=== PATIENT | female | born 1960 | race Caucasian/White ===

== ENCOUNTER → 2020-08-11 15:39 | Outpatient (CLI) | payer BC, SELFPAY ==
--- NOTE | ~2020-08-11 | MR_ITS ---
EXAMINATION: MR ankle RT wo/w con DATE: 08/11/2020 17:40 INDICATION: Lateral right ankle tumor TECHNIQUE: Magnetic resonance imaging (MRI) of the right ankle was performed . without and with 17 mL Multihance intravenous contrast. Sequences included axial, sagittal and coronal T1-weighted FSE and T2-weighted FS FSE, axial T1-weighted FS FSE and postcontrast axial, sagittal and coronal T1-weighted FS FSE. COMPARISON: None. FINDINGS: Medial ankle ligaments: Deep and superficial deltoid ligaments as well as the spring ligament are normal. Lateral ankle ligaments: The anterior and posterior inferior tibiofibular ligaments are normal. The anterior talofibular, calc aneofibular and posterior talofibular ligaments are normal. Tendons: Small plantar calcaneal spur at the insertion of the Achilles tendon with additional small enthesopat hic ossicle at the distal aspect of the otherwise normal tendon consistent with chronic enthesopathy. . The peroneus longus and brevis tendons are normal. The tibialis anterior and extensor hallucis long us and extensor digitorum longus tendons are normal. The tibialis posterior, flexor digitorum longus and flexor hallucis longus tendons are normal. Plantar fascia: Small plantar calcaneal spur. There is mild thickening and increased signal of the central component of the plantar aponeurosis. Mild marrow edema with minimal enhancement at the calcaneal insertion of the plantar aponeurosis. Findings consistent with chronic enthesopathy with minimal ongoing plantar f asciitis. Bones/other: Bone alignment is normal. No fracture or pathologic marrow replacing process. Mild polyarticular oste oarthritis with small regions of high-grade chondral malacia with underlying subarticular edema at po rtions of the calcaneocuboid, navicular cuneiform and first-third tarsal metatarsal joints. At the ti biotalar joint there is degenerative subchondral cystic change versus osteochondral lesion along a 4 x 9 mm region of the posterior medial rim of the talar dome. There is a 1.7 x 0.7 x 1.7 cm peripherally enhancing lesion overlying the lateral malleolus within wh ich there is an additional approximately 4 x 3 mm central enhancing nodule. There is mild hyperemia a nd edema in the surrounding subcutaneous fat. There is a small region of increased fluid signal withi n the central nonenhancing portion of the lesion. IMPRESSION: 1. 1.7 x 0.7 x 1.7 cm complex cystic lesion overlying the lateral malleolus. Differential would inclu de abscess, hematoma/seroma, bursitis and could not exclude a cystic neoplasm although the surroundin g edema would favor an inflammatory etiology. Correlate with clinical history and if indicated could consider ultrasound-guided aspiration/biopsy. 2. Mild polyarticular osteoarthritis at the right foot and ankle with subarticular cystic change vers us osteochondral lesion along the posterior medial rim of the talar dome. Reviewed, dictated and finalized at location A. [facility] IMPRESSION: 1. 1.7 x 0.7 x 1.7 cm complex cystic lesion overlying the lateral malleolus. Di fferential would include abscess, hematoma/seroma, bursitis and could not exclu de a cystic neoplasm although the surrounding edema would favor an inflammatory etiology. Correlate with clinical history and if indicated could consider ultr asound-guided aspiration/biopsy. 2. Mild polyarticular osteoarthritis at the right foot and ankle with subarticu lar cystic change versus osteochondral lesion along the posterior medial rim of the talar dome.
[2020-08-11 16:18] LABS: Estimated Glomerular Filt Rate > 60
== END ==
PROVIDERS: Visit Provider Podiatrist Foot & Ankle Surgery
DX: R22.41 Localized swelling, mass and lump, right lower limb (principal); M19.071 Primary osteoarthritis, right ankle and foot
CPT/HCPCS: 73723; A9577

== ENCOUNTER 2020-09-06 01:38 | Outpatient (CLI) | payer BC, SELFPAY ==
[2020-09-06 18:52] LABS: SARS-CoV-2 RNA PCR Negative
== END 2020-09-06 01:39 | disposition home or self-care (01) ==
LOC: ANHCOVIDDT 01:38
PROVIDERS: PCP Physician Assistant; Visit Provider Internal Medicine Gastroenterology
DX: Z01.818 Encounter for other preprocedural examination (principal); Z20.828 Contact with and (suspected) exposure to other viral communicable diseases
CPT/HCPCS: 87635; C9803; U0003

== ENCOUNTER 2020-09-09 00:18 | Day surgery (SDC) | payer BC, SELFPAY ==
[2020-09-01 13:21] VITALS: BMI 35.4
--- NOTE | 2020-09-08 13:02 | WPDANESEPPF ---
Anes - Initial Pre Proc Eval Procedure: Operation Date: 09/09/20 08:30 Proposed Procedures p Screening Colonoscopy - Yobany Bunch DO Date/Time: 09/08/20 13:02 Surgeon: Yobany Bunch DO Pre Op Diagnosis: neoplasm screening Patient Data Age: 60 Gender: F Height: 1.57 m Weight: 88 kg Allergies Allergy/AdvReac Type Severity Reaction Status Date / Time Penicillins Allergy Unknown Unknown Verified 09/09/20 07:14 Home Medications Medication Instructions Recorded Confirmed Type atorvastatin 40 mg tablet 40 mg PO DAILY #90 tablet 11/03/19 09/09/20 Rx omeprazole 20 mg capsule,delayed 20 mg PO DAILY 07/19/20 09/09/20 History release lisinopril 20 mg PO DAILY 09/01/20 09/09/20 History metformin 2,000 mg BID 09/01/20 09/09/20 History Patient hx anesthesia problems: none Family hx anesthesia problems: none PMFSH Past Medical History Medical History (Updated 09/08/20 @ 13:02 by Ralph Alberto MD) BMI 35.0-35.9,adult Diabetes GERD (gastroesophageal reflux disease) Hypercholesterolemia Hypertension Ingrown toenail without infection (~06/2018) Primary hypertension Tobacco abuse Family History Family History Mother Family history of malignant neoplasm of ovary Diabetes mellitus Grandparent Diabetes mellitus Social History Social History Smoking packs per day: 0.5 Smoking cigarettes per day: 10.0 Years smoked: 44 Smoking pack-years: 22.00 Smoking status: Current every day smoker Tobacco type: cigarettes Second hand tobacco smoke exposure: No Alcohol intake: current Substance use: never Substance use type: does not use Gender identity (if verbalized by the patient): Female Spiritual care concerns: No Anes - Eval Final PreProcedure Day of Procedure 09/08/20 13:02 Patient weight: obese Heart: regular rate and rhythm Lungs: clear to auscultation and normal air movement Airway: Mallampati scale class II Neurological: alert and oriented Last oral intake: >/= 8 hours ASA classification: III Emergent: no Anesthetic plan: proceed Anesthesia type and monitoring: general GIVS Informed Consent: The patient's anesthetic plan and its attendant risks and benefits were discussed with the patient/family/POA. Questions were solicited and answers provided to the satisfaction of the patient/family/POA.
[2020-09-09 07:15] VITALS: BP 147/67; PULSE 81; RESP 18; TEMP 36.4; O2SAT 100; BMI 34.1
[2020-09-09] MEDS: LACTATED RINGERS 1,000 ML 150 ML IV CONT (07:23)
[2020-09-09 07:31] LABS: Glucose Point of Care 144 (65-105)
--- NOTE | 2020-09-09 08:29 | P.HP_ITS ---
H&P: [facility] History of Present Illness Date/Time: 09/09/20 08:29 Chief complaint: neoplasm screening Narrative: Reason for visit colonoscopy. This very pleasant lady's here at the request of the primary physician. The patient was examined. Impression: Screening and surveillance colonoscopy. Patient's history adenomatous colon polyps. GERD well controlled on medication. Diabetes mellitus. Hypertension. Hyperlipidemia. Recommendation: Colonoscopy. History: This very pleasant lady's here for screening and surveillance colonoscopy. She has history adenomatous colon polyps. She does have a history of GERD well controlled on medication. Physical examination: General: very pleasant patient in no acute distress. HEENT: Head was normocephalic sclerae is clear mouth without masses neck was supple. Heart: Rate rhythm regular without S3 or S4. Lungs: CTA. Abdomen: Soft with no guarding or rigidity. Bowel sounds were active. Neurologic: Cranial nerves 2 through 12 intact. No focal defects. No clonus. Musculoskeletal system: Revealed no joint tenderness or swelling no muscle atrophy. Extremities: Reveal no significant edema. Skin: Warm and dry with normal turgor. Mental status: intact. Patient is alert and oriented. Review of Systems Review of Systems: All systems reviewed & are unremarkable except as noted in HPI and below PMFSH Past Medical History Medical History (Updated 09/08/20 @ 13:02 by Ralph Alberto MD) BMI 35.0-35.9,adult Diabetes GERD (gastroesophageal reflux disease) Hypercholesterolemia Hypertension Ingrown toenail without infection (~06/2018) Primary hypertension Tobacco abuse Family History Family History Mother Family history of malignant neoplasm of ovary Diabetes mellitus Grandparent Diabetes mellitus Social History Social History Smoking packs per day: 0.5 Smoking cigarettes per day: 10.0 Years smoked: 44 Smoking pack-years: 22.00 Smoking status: Current every day smoker Tobacco type: cigarettes Second hand tobacco smoke exposure: No Alcohol intake: current Substance use: never Substance use type: does not use Gender identity (if verbalized by the patient): Female Spiritual care concerns: No Meds Home Medications and Allergies Home Medications Medication Instructions Recorded Confirmed Type atorvastatin 40 mg tablet 40 mg PO DAILY #90 tablet 11/03/19 09/09/20 Rx omeprazole 20 mg capsule,delayed 20 mg PO DAILY 07/19/20 09/09/20 History release lisinopril 20 mg PO DAILY 09/01/20 09/09/20 History metformin 2,000 mg BID 09/01/20 09/09/20 History Allergies Allergy/AdvReac Type Severity Reaction Status Date / Time Penicillins Allergy Unknown Unknown Verified 09/09/20 07:14 Vital Signs Vital Signs - 24 hr 09/09/20 07:15 Temperature 36.4 C L Pulse Rate 81 Respiratory Rate 18 Blood Pressure 147/67 H Pulse Oximetry 100
[2020-09-09 09:03] VITALS: BP 102/61; PULSE 65; RESP 20; O2SAT 94
[2020-09-09 09:13] VITALS: BP 98/62; PULSE 67; RESP 20; O2SAT 98
[2020-09-09 09:23] VITALS: BP 116/74; PULSE 55; RESP 15; O2SAT 100
== END 2020-09-09 09:10 | disposition home or self-care (01) ==
PROVIDERS: PCP Physician Assistant; Visit Provider Internal Medicine Gastroenterology
PROC: 0DJD8ZZ Inspection of Lower Intestinal Tract, Via Natural or Artificial Opening Endoscopic (ICD-10-PCS; CPT 45378; principal; 2020-09-09 08:30)
DX: Z12.11 Encounter for screening for malignant neoplasm of colon (principal); K52.9 Noninfective gastroenteritis and colitis, unspecified; D12.8 Benign neoplasm of rectum; D12.5 Benign neoplasm of sigmoid colon; K63.5 Polyp of colon; K57.30 Diverticulosis of large intestine without perforation or abscess without bleeding; K64.8 Other hemorrhoids; I10 Essential (primary) hypertension; E78.00 Pure hypercholesterolemia, unspecified; E11.9 Type 2 diabetes mellitus without complications; K21.9 Gastro-esophageal reflux disease without esophagitis; Z79.84 Long term (current) use of oral hypoglycemic drugs; F17.210 Nicotine dependence, cigarettes, uncomplicated; E66.9 Obesity, unspecified; Z68.34 Body mass index [BMI] 34.0-34.9, adult
CPT/HCPCS: 45385; 45380; 88305; J2704; J7120

== ENCOUNTER → 2020-10-06 10:12 | Outpatient (CLI) | payer BC, SELFPAY ==
--- NOTE | ~2020-10-06 | DEXA_ITS ---
Bone Density Report Name: Yuliya Lopez Age: 60 Sex: Female Ethnicity: White Date of : 1960 Indication: postmenopausal; screening for osteoporosis; hysterectomy; Referring Provider: Jamel Ag Study: Bone densitometry was performed. Exam Date: October 06, 2020 Accession number: [id number] Bone Density: Region BMD T-score Z-score Classification AP Spine (L1-L4) 1.116 0.6 2.0 Normal Femoral Neck (Left) 0.871 0.2 1.4 Normal Total Hip (Left) 1.039 0.8 1.7 Normal Femoral Neck (Right) 0.782 -0.6 0.6 Normal Total Hip (Right) 1.006 0.5 1.4 Normal Total Hip Mean 1.023 0.7 1.6 Normal World Health Organization criteria for BMD impression classify patients as: Normal (T-score at or above -1.0), Osteopenia (T-score between -1.0 and -2.5), or Osteoporosis (T-score at or below -2.5). 10-year Fracture Risk: FRAX not reported because: All T-scores for Spine Total, Hip Total, Femoral Neck at or above -1.0 Previous Exams: Region Exam Age BMD T-score BMD Change BMD Change Date g/cm2 vs Baseline vs Previous AP Spine(L1-L4) 10/06/2020 60 1.116 0.6 0.015 0.015 02/07/2016 55 1.100 0.5 Total Hip(Left) 10/06/2020 60 1.039 0.8 0.000 0.000 02/07/2016 55 1.039 0.8 Total Hip(Right) 10/06/2020 60 1.006 0.5 -0.044* -0.044* 02/07/2016 55 1.050 0.9 *Denotes significance at 95% confidence level, LSC for AP Spine = 0.022 g/cm2, LSC for Total Hip = 0.027 g/cm2 Clinical Information Provided by Patient: Smokes Has the following medical conditions: Hysterectomy Patient maximum height was 62.5 Menopause Age: 50 No regular weight bearing exercise Drinks caffeinated beverages Onset of menses at age 16 Number of children 2 Impression: The patient has normal bone mass. The patient has risk factors, including: smoking. The BMD for the Total Hip(Right) decreased, changing by -0.044 since the last DXA exam. Discussion: BONE DENSITY IS ABOVE THE MINIMUM DESIRABLE LEVEL AT ALL SKELETAL SITES TESTED. This patient?s bone mineral density is above the minimum desirable level (T-score -1.0 or better) at all sites measured. The patient should follow a healthful lifestyle (good nutrition with adequate calcium and vitamin D, and appropriate weight-bearing exercise). Follow-Up: Consider repeating this study in 3 to 4 years to reassess this patient's status, or sooner if there is some new
--- NOTE | ~2020-10-06 | MM_ITS ---
EXAMINATION: MM screening [facility] BI w julio HISTORY: Screening mammogram TECHNIQUE: Craniocaudal and mediolateral oblique 3-D tomosynthesis images were obtained and synthetic 2-D images were generated. CAD analysis was submitted and interpreted. COMPARISON: 02/07/2016, 02/03/2015, 12/03/2013 BREAST PARENCHYMAL COMPOSITION: There are scattered areas of fibroglandular density. FINDINGS: Intramammary lymph nodes are noted in the upper outer quadrant of the right breast. There i s no evidence of suspicious mass, calcification, or architectural distortion to suggest malignancy in either breast. There has been no suspicious interval change. IMPRESSION: 1. No mammographic evidence of malignancy. 2. Recommend routine screening mammography in one year. BI-RADS Category 2: Benign finding(s). Reviewed, dictated and finalized at location A. 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
== END ==
PROVIDERS: PCP Physician Assistant; Visit Provider Physician Assistant
DX: Z12.31 Encounter for screening mammogram for malignant neoplasm of breast (principal); M81.0 Age-related osteoporosis without current pathological fracture
CPT/HCPCS: 77063; 77067; 77080

== ENCOUNTER → 2020-11-12 06:57 | Outpatient (CLI) | payer BC, SELFPAY ==
[2020-11-12 23:53] LABS: SARS-CoV-2 RNA PCR Negative
== END ==
PROVIDERS: PCP Physician Assistant; Visit Provider Physician Assistant
DX: Z20.822 Contact with and (suspected) exposure to COVID-19 (principal)
CPT/HCPCS: C9803; U0003; U0005

== ENCOUNTER 2021-01-12 14:40 | Outpatient (CLI) | payer BC, SELFPAY | END 2021-01-12 14:41 | disposition home or self-care (01) | LOC: ANHCOVIDVC 14:40 | PROVIDERS: PCP Physician Assistant | DX: Z23 Encounter for immunization (principal) | CPT/HCPCS: 0001A; 91300 ==

== ENCOUNTER 2021-02-02 14:42 | Outpatient (CLI) | payer BC, SELFPAY | END 2021-02-02 14:43 | disposition home or self-care (01) | LOC: ANHCOVIDVC 14:42 | PROVIDERS: PCP Physician Assistant | DX: Z23 Encounter for immunization (principal) | CPT/HCPCS: 0002A; 91300 ==

== ENCOUNTER 2021-04-06 14:30 | Outpatient (CLI) | payer BC, SELFPAY ==
--- NOTE | 2021-04-06 08:00 | ECG_ITS ---
Measurements Intervals [place] Rate: 82 P: 22 WA: 152 QRS: 20 QRSD: 91 T: -5 QT: 358 QTc: 419 Interpretive Statements SINUS RHYTHM BORDERLINE R WAVE PROGRESSION, ANTERIOR LEADS BORDERLINE ST-T WAVE ABNORMALITY- INFERIOR LEADS BORDERLINE ECG Electronically Signed On 04-06-2021 8:24:11 CDT by Ghassan Esteban D.O.
== END 2021-04-06 14:31 | disposition home or self-care (01) ==
LOC: ANHSURGERY 04-18 14:30
PROVIDERS: PCP Family Medicine; Visit Provider Podiatrist Foot & Ankle Surgery
DX: Z01.818 Encounter for other preprocedural examination (principal); R94.31 Abnormal electrocardiogram [ECG] [EKG]
CPT/HCPCS: 93005

== ENCOUNTER 2021-04-08 02:10 | Day surgery (SDC) | payer BC, SELFPAY ==
[2021-04-05 09:43] VITALS: BMI 35.0
[2021-04-08 06:49] VITALS: BP 133/74; PULSE 89; RESP 18; TEMP 36.3; O2SAT 99
[2021-04-08] MEDS: LACTATED RINGERS 1,000 ML 30 ML IV CONT (07:10)
--- NOTE | 2021-04-08 07:12 | WPDHPUPDATE1 ---
History and Physical Update Update Date/Time: 04/08/21 07:12 History and Physical has been reviewed, including an updated exam of the patient. There are NO changes in the patient's condition. Risks, benefits, and alternatives have been discussed and questions answered. Patient agrees to proceed with procedure.
[2021-04-08 07:38] LABS: Glucose Point of Care 125 mg/dl (65-105)
--- NOTE | 2021-04-08 08:53 | WPDANESEPPF ---
Anes - Initial Pre Proc Eval Procedure: Operation Date: 04/08/21 09:00 Proposed Procedures p Excision of Soft Tissue Mass Right Ankle - Los Liu JR, MD Date/Time: 04/08/21 08:53 Surgeon: Los Liu JR, MD Pre Op Diagnosis: soft tissue mass right ankle Patient Data Age: 60 Gender: F Height: 1.57 m Weight: 87.6 kg Last Vital Signs Temp 97.4 F L 04/08/21 06:49 Pulse 89 04/08/21 06:49 Resp 18 04/08/21 06:49 BP 133/74 04/08/21 06:49 Pulse Ox 99 04/08/21 06:49 Allergies Allergy/AdvReac Type Severity Reaction Status Date / Time Penicillins Allergy Unknown Unknown Verified 04/08/21 07:29 Home Medications Medication Instructions Recorded Confirmed Type omeprazole 20 mg capsule,delayed 20 mg PO DAILY 07/19/20 04/08/21 History release atorvastatin 40 mg tablet 40 mg PO DAILY #90 tablet 11/16/20 04/08/21 Rx metformin 1,000 mg tablet 1,000 mg PO BID #180 tablet 02/18/21 04/08/21 Rx glimepiride 2 mg tablet 2 mg PO QAM #90 tablet 03/09/21 04/08/21 Rx irbesartan 150 mg tablet 150 mg PO DAILY #90 tablet 03/09/21 04/08/21 Rx Laboratory Tests 04/08/21 07:35 POC Capillary Glucose 125 mg/dl H mg/dl (65-105) Patient hx anesthesia problems: none Family hx anesthesia problems: none PMFSH Past Medical History Medical History BMI 35.0-35.9,adult Diabetes GERD (gastroesophageal reflux disease) Hypercholesterolemia Hypertension Ingrown toenail without infection (~06/2018) Primary hypertension Tobacco abuse Family History Family History Mother Family history of malignant neoplasm of ovary Diabetes mellitus Grandparent Diabetes mellitus Social History Social History Smoking packs per day: 0.5 Smoking cigarettes per day: 10.0 Years smoked: 44 Smoking pack-years: 22.00 Smoking status: Current every day smoker Tobacco type: cigarettes Second hand tobacco smoke exposure: No Additional smoking assessment comments: 45 YEARS 1/2 PPD Alcohol intake: current Alcohol use details: RARE<1 PER MONTH Substance use: never Substance use type: does not use Living arrangements: with family Gender identity (if verbalized by the patient): Female Spiritual care concerns: No Anes - Eval Final PreProcedure Day of Procedure 04/08/21 08:53 Patient weight: obese Heart: regular rate and rhythm Lungs: clear to auscultation Airway: Mallampati scale class II Neurological: alert and oriented Last oral intake: >/= 8 hours ASA classification: III Emergent: no Anesthetic plan: proceed Anesthesia type and monitoring: general GIVS and standard monitoring Informed Consent: The patient's anesthetic plan and its attendant risks and benefits were discussed with the patient/family/POA. Questions were solicited and answers provided to the satisfaction of the patient/family/POA.
[2021-04-08] MEDS: ceFAZolin 2 GM/D5W 50 ML 2 GM/50 ML BAG IVPB (08:58)
[2021-04-08] MEDS: BUPIVACAINE HCL 0.5% PF 30 ML VIAL INFILTRATE (09:04)
[2021-04-08 09:51] VITALS: BP 98/64; PULSE 64; RESP 16; O2SAT 93
--- NOTE | 2021-04-08 09:58 | W.PM.PROC2 ---
Procedure Note - Detailed Date of Procedure 04/08/21 Pre-op Diagnosis soft tissue mass right ankle Post-op Diagnosis same Procedure Performed Excision of soft tissue mass right ankle Surgeon Los Liu JR, DPM Anesthesia MAC and local Indications Painful soft tissue mass right lateral ankle Findings 2cm by 3cm fibrocystic mass present superficial to lateral malleolus Description of Procedure PROCEDURE IN DETAIL: Under mild sedation, the patient was brought into the operating room, placed on the operating table in supine position with a hip bump to internally rotate the right lower extremity. A pneumatic high calf tourniquet was placed about the patient's right calf. Following general anesthesia, a local anesthetic block was obtained about the distal lateral right leg utilizing 10mL of a 1:1 of 2% Lidocaine plain and 0.5% Marcaine plain. The foot and distal right leg was then scrubbed, prepped, and draped in the usual aseptic manner. An Esmarch bandage was then used to exsanguinate the patient's foot and the pneumatic ankle tourniquet was then inflated. Surgery began in the following manner: Attention was directed to the lateral aspect of the ankle overlying the lateral malleolus. The incision was made starting 4cm above the distal fibula and extending 1cm inferior to the distal fibula. The incision was continued deep down through the subcutaneous tissues using sharp and blunt dissection. All bleeders were cauterized as necessary. At this point, the dissection was continued down to the superficial fascial layer where a large fibrocystic heterogenous mass mass was visualized, the mass was carefully dissected away from the lateral malleolus easily bluntly dissected from the deeper periosteum overlying the lateral malleolus. All bleeders were ligated and cauterized as necessary. No involvement of bone nor the proximal and distal soft tissue structures. The entire mass was excised and sent for gross and histopathology. No remnants of the mass were noted, I did protect the neurovascular structures the sural nerve was not visualized. The operative site was flushed with copious amount of sterile saline. I used Surgicell to aid with hemostasis along the areas where electrocautery and ligation was performed to prevent hematoma. Finally, the subcutaneous structures were reapproximated with 4-0 Vicryl. Next, the skin was reapproximated and coapted utilizing 4-0 Monocryl in running subcuticular suture fashion technique. Upon completion of the procedure, the incision was dressed with Steri-Strips, Adaptic, 4x4s, Kerlix, and Coban. The pneumatic ankle tourniquet was then deflated and a prompt hyperemic response was noted to all digits of the foot. A surgical shoe was then applied to the affected lower extremity. It is important to note that Dr. Liu was present throughout the procedure. The patient did very well with the procedure and the anesthesia. The patient was transferred to the recovery room with vital signs stable and vascular status intact to all toes of the foot. Following a period of postoperative monitoring, the patient will be discharged home on the following written and oral postoperative instructions: 1. Keep the dressing clean, dry, and intact. 2. The patient to be protected weight bearing with a surgical shoe. 3. The patient should ice and elevate the affected foot when at rest. 4. The patient should contact Dr. Liu for all postop care and if any problems should arise. The patient will follow up in one week for the post op visit. 5. Prescriptions were written for Percocet 5/325, dispensed 40 to be taken 1 p.o. q.4-6 hours as needed for severe pain. Furthermore, the patient should take Aspirin 325 once daily for two weeks to prevent DVT. Estimated Blood Loss 1 Drains No Packing No Pathology yes Complications No immediate complications Condition stable Disposition PACU
[2021-04-08 10:12] LABS: Glucose Point of Care 93 mg/dl (65-105)
[2021-04-08 10:20] VITALS: BP 110/65; PULSE 65; RESP 16; O2SAT 96
[2021-04-08 10:45] VITALS: BP 127/71; PULSE 64; RESP 18
== END 2021-04-08 11:12 | disposition home or self-care (01) ==
PROVIDERS: PCP Family Medicine; Visit Provider Podiatrist Foot & Ankle Surgery
PROC: (CPT 27632; principal; 2021-04-08 09:00)
DX: M79.89 Other specified soft tissue disorders (principal); I10 Essential (primary) hypertension; E78.00 Pure hypercholesterolemia, unspecified; E11.9 Type 2 diabetes mellitus without complications; K21.9 Gastro-esophageal reflux disease without esophagitis; Z79.84 Long term (current) use of oral hypoglycemic drugs; E66.9 Obesity, unspecified; Z68.35 Body mass index [BMI] 35.0-35.9, adult; F17.210 Nicotine dependence, cigarettes, uncomplicated
CPT/HCPCS: 27632; 82948; 88304; J0690; J2250; J2405; J2704; J3010; J7120

== ENCOUNTER 2021-12-01 01:36 | Day surgery (SDC) | payer BC, SELFPAY ==
[2021-11-24 12:57] VITALS: BMI 34.0
--- NOTE | 2021-11-24 13:07 | PC.NURSE ---
Report to the Outpatient Waiting Room, entrance under the green pavilion located off [facility], at time 0800 on date 12/01/21. OR Time: 1000. - You and your visitor will be asked a series of questions to screen for COVID 19 for your protection. - A mask is required within the hospital. One visitor will be allowed to accompany the patient into the hospital. Patients visitor will be instructed to remain with patient at all times or leave the building. We will allow the visitor to come back to the postoperative area when patient is ready. Preoperative COVID Testing Requirements: No COVID Test needed if: (proof is required; if not received patient will have Rapid Test prior to entry) - Patient has received COVID Vaccine at least 14 days prior to procedure date or - Patient has positive COVID test result within last 90 days of surgery date. COVID Test needed if above criteria is not met Patients may have clear liquids (water, carbonated beverages, clear teas, apple juice) until 3 hours prior to surgery with a maximum of 20 ounces. - No food from midnight until time of surgery Take the following medications with a SIP of water the morning of surgery: NONE Medications to discontinue per physician: N/A Date to take last dose: N/A Please no make-up, nail kiswahili, hairspray, perfume, deodorant, or body powder the day of surgery. No jewelry (including any body piercings) or valuables the day of surgery, leave them at home. Please take a shower or bath the night before, or the morning of, surgery with an antibacterial soap. Wear comfortable, loose fitting clothing. - Jewelry must be removed prior to entering the operating room. Rings and piercings that are not removed may be cut off. - The hospital will not accept responsibility for valuables. - Please leave all valuables, including medications, at home the day of surgery. If you are going home after surgery, a licensed race car driver must drive you home. - NO public transportation without another adult. - We recommend that an adult stay with you for 24 hours following discharge. - We also recommend that you do not drive, make important decision, drink alcoholic beverages, or take any drugs that were not prescribed by your health care provider for at least 24 hours after your discharge time. Follow any additional instructions given to you from your surgeon. Telephone instructions given to KEON CURRY and asked if any additional questions and then verbalized understanding. Patient advised to call surgeon office or pre surgery nurse liaison [phone] if any additional questions. PT STATES SHE WISHES TO ONLY HAVE LOCAL ANESTHETIC. PT TO CALL OFFICE TO REQUEST CHANGE IN ANESTHESIA TYPE. INSTRUCTIONS REVIEWED WITH PT IF LOCAL: ARRIVAL AT 0900 ON 12/01/32 FOR SURGERY AT 1000. MAY HAVE LIGHT BREAKFAST AND TAKE ALL MEDICATIONS PRESCRIBED. PT MAY DRIVE SELF HOME IF ONLY LOCAL ANESTHETIC. PT VERBALIZES UNDERSTANDING AND STATES THAT SHE WILL CALL THE OFFICE.
--- NOTE | 2021-11-29 07:09 | PM.HPGS ---
History of Present Illness History of Present Illness Consent: Risks, benefits, and alternatives have been discussed and questions answered. Patient agrees to proceed with procedure. Chief complaint: left neck cyst Narrative: Yuliya Lopez is a 61 year old female with a 2.5 cm neck mass she has been on antibiotics PMFSH Past Medical History Medical History BMI 35.0-35.9,adult Diabetes GERD (gastroesophageal reflux disease) Hypercholesterolemia Hypertension Ingrown toenail without infection (~06/2018) Primary hypertension Tobacco abuse Family History Family History Mother Family history of malignant neoplasm of ovary Diabetes mellitus Grandparent Diabetes mellitus Social History Social History Smoking packs per day: 0.5 Smoking cigarettes per day: 10.0 Years smoked: 45 Smoking pack-years: 22.50 Smoking status: Former smoker Tobacco type: cigarettes Second hand tobacco smoke exposure: No Additional smoking assessment comments: 45 YEARS 1/2 PPD Alcohol intake: never Alcohol use details: RARE<1 PER MONTH Substance use: never Substance use type: does not use Living arrangements: with family Gender identity (if verbalized by the patient): Female Spiritual care concerns: No Meds Home Medications and Allergies Home Medications Medication Instructions Recorded Confirmed Type omeprazole 20 mg capsule,delayed 20 mg PO DAILY 07/19/20 11/24/21 History release glimepiride 2 mg tablet 2 mg PO QAM #90 tablet 03/09/21 11/24/21 Rx irbesartan 150 mg tablet 150 mg PO DAILY #90 tablet 03/09/21 11/24/21 Rx rosuvastatin 40 mg tablet 40 mg PO DAILY #90 tablet 07/29/21 11/24/21 Rx metformin 1,000 mg tablet See Rx Instructions .ROUTE 08/29/21 11/24/21 Rx .COMPLEX #180 tablet Allergies Allergy/AdvReac Type Severity Reaction Status Date / Time Penicillins Allergy Unknown Unknown Verified 11/24/21 12:56 adhesive tape AdvReac Unknown unknown Verified 11/24/21 12:56 Exam Narrative: chest clear heart no murmurs abdomen soft extremities negative left 2.5 cm cyst Assessment and Plan Additional Plan plan excision left neck cyst
--- NOTE | 2021-12-01 05:57 | WPDHPUPDATE1 ---
History and Physical Update Update Date/Time: 12/01/21 05:57 History and Physical has been reviewed, including an updated exam of the patient. There are NO changes in the patient's condition. Risks, benefits, and alternatives have been discussed and questions answered. Patient agrees to proceed with procedure.
[2021-12-01 09:07] VITALS: BP 148/79; PULSE 74; RESP 20; TEMP 36.2; O2SAT 100
[2021-12-01 09:51] VITALS: BP 133/74; PULSE 66; RESP 16; O2SAT 97
[2021-12-01 10:01] VITALS: BP 144/75; PULSE 60; RESP 16; O2SAT 97
[2021-12-01] MEDS: NEOMYCIN/POLYMYXIN/BACITRACIN OINTMENT 15 GM TUBE 1 APPLIC TOPICAL (10:08)
[2021-12-01 10:11] VITALS: BP 142/69; PULSE 64; RESP 16; O2SAT 97
--- NOTE | 2021-12-01 10:18 | P.OP_ITS ---
Procedure Note - Detailed Date of Procedure 12/01/21 Pre-op Diagnosis left neck cyst Post-op Diagnosis Same Procedure Performed Excision cyst left neck Surgeon Zhen Waterman MD Description of Procedure Patient was prepped after induction of local anesthesia elliptical incision was made dissection carried down to the muscle layer and the cyst was removed closed when her [place] 3-0 chromic and subcuticular Monocryl and glue
[2021-12-01 10:20] VITALS: BP 138/72; PULSE 72; RESP 16; O2SAT 100
--- NOTE | 2021-12-01 12:03 | W.PM.PROC2 ---
Procedure Note - Detailed Date of Procedure 12/01/21 Pre-op Diagnosis left neck cyst Post-op Diagnosis Same Procedure Performed excision neck cyst left Surgeon Zhen Waterman MD Description of Procedure patient was prepped and local anesthesia elliptical incision near the prominence of the cyst lip please size down to the muscle air closed in layers of chromic and Monocryl
== END 2021-12-01 10:37 | disposition home or self-care (01) ==
PROVIDERS: PCP Family Medicine; Visit Provider Otolaryngology
PROC: (CPT 12041; principal; 2021-12-01 10:00)
DX: L90.5 Scar conditions and fibrosis of skin (principal); E11.9 Type 2 diabetes mellitus without complications; K21.9 Gastro-esophageal reflux disease without esophagitis; E78.00 Pure hypercholesterolemia, unspecified; I10 Essential (primary) hypertension; Z87.891 Personal history of nicotine dependence; Z79.84 Long term (current) use of oral hypoglycemic drugs
CPT/HCPCS: 12041; 88304; 88305; A9270

== ENCOUNTER 2022-02-10 14:02 | Outpatient (CLI) | payer BC, SELFPAY ==
--- NOTE | ~2022-02-10 | CT_ITS ---
EXAMINATION:CT lung screening DATE: 02/10/2022 14:27 INDICATION: Tobacco use. Current smoker with 40 pack year history. TECHNIQUE: Computed tomography (CT) of the chest was performed without intravenous contrast. Automate d exposure control and iterative reconstruction technique were employed. The dose-length product (DLP ) was 116.34 mGy-cm. COMPARISON: None. FINDINGS: Calcified bilateral lung nodules and calcified right hilar and mediastinal lymph nodes are consistent with old granulomatous disease. There is a 3 mm nodule at left major fissure. No pleural e ffusion. The heart size is normal. There are coronary artery calcifications. No pericardial effusion. There is a small sliding hiatal hernia. Calcifications in the spleen are consistent with old granulo matous disease. There are 4 stones in left kidney measuring up to 4 mm. There is severe thoracic spon dylosis. IMPRESSION: 1. Lung-RADS category 2: Benign appearance or behavior. Continue annual screening with noncontrast lo w-dose chest CT in 12 months. Reviewed, dictated and finalized at location [facility]. IMPRESSION: 1. Lung-RADS category 2: Benign appearance or behavior. Continue annual screeni ng with noncontrast low-dose chest CT in 12 months.
== END 2022-02-10 14:03 | disposition home or self-care (01) ==
PROVIDERS: PCP Family Medicine; Visit Provider Physician Assistant
DX: Z12.2 Encounter for screening for malignant neoplasm of respiratory organs (principal); Z87.891 Personal history of nicotine dependence
CPT/HCPCS: 71271

== ENCOUNTER 2024-07-10 10:10 | Outpatient (CLI) | payer BC, SELFPAY ==
--- NOTE | ~2024-07-10 | CT_ITS ---
CT Scan of the Chest without Contrast: Clinical Indication: Lung cancer screening, nicotine dependence Technique: Contiguous sections were acquired throughout the chest without intravenous contrast. Dose reduction technique was used on this scan by utilizing automated exposure control and iterative recon struction technique. The dose-length product (DLP) was 143.61 mGy-cm. COMPARISON: 02/10/2022 Findings: There is no evidence of any significant mediastinal, hilar or axillary lymphadenopathy. Extensive cor onary artery calcifications are present. There is no evidence of pleural or pericardial effusion. Stable 2 mm left upper lobe nodule along the fissure near the apex. Calcified right basilar granuloma s are present. Images through the upper abdomen reveal no abnormalities. Impression: Lung RADS 2: Benign appearance. 12 month follow-up screening CT advised. Reviewed, dictated and finalized at [facility]. Impression: Lung RADS 2: Benign appearance. 12 month follow-up screening CT advised.
== END 2024-07-10 10:11 | disposition home or self-care (01) ==
LOC: MICIMG 10:12
PROVIDERS: PCP Family Medicine; Visit Provider Student in an Organized Health Care Education/Training Program
DX: Z12.2 Encounter for screening for malignant neoplasm of respiratory organs (principal); Z87.891 Personal history of nicotine dependence
CPT/HCPCS: 71271

== ENCOUNTER 2025-02-05 08:56 | Outpatient (CLI) | payer SELFPAY ==
--- OUTSIDE RECORDS SUMMARY | 2025-02-05 09:16 | XMS_ITS | Clinical Summary ---
Author Organization [facility] Address [address] [place] [address] Care Team Providers Care Rec Therapist Name Role Phone Juan Pablo Culp MD Primary Care Provider [phone] [facility],non-owned Affiliates and Associated Physician Practices is amultiple site organization consisting of ambulatory clinics and hospital sitesin [place], [place], [place] and [place]. This disclosure is being madepursuant to the Care Everywhere program and may not contain all information available regarding this patient. Last updated 18.[facility] Allergies Active Allergy Reactions Criticality Noted Date Comments Penicillins Rash Medium 08/18/2020 Medications * Be aware that medications may not be up to date on this document. Alwaysverify current medications with the patient. metFORMIN (GLUCOPHAGE) 500 MG tablet Take 2,000 mg by mouth once daily Active lisinopril (PRINIVIL; ZESTRIL) 20 MG tablet Take 20 mg by mouth once daily Active atorvastatin (LIPITOR) 40 MG tablet Take 40 mg by mouth at bedtime Active omeprazole (PRILOSEC) 20 MG capsule Take 20 mg by mouth 2 times daily, before breakfast and supper Active Active Problems No known active problems Social History Tobacco Use Types Packs/Day Years Used Date Smoking Tobacco: Every Day Cigarettes 0.5 45 Smokeless Tobacco: Never Tobacco Cessation:Ready to Q uit: No; Counseling Given: No Comments Unknown Sex and Gender Information Value Date Recorded Sex Assigned at Not on file 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 Gender Identity Not on file Sexual Orientation Not on file Last Filed Vital Signs Vital Sign Reading Time Taken Comments Blood Pressure 131/69 08/18/2020 10:48 AM SHIPYARD PAINTER Pulse 74 08/18/2020 10:48 AM SHIPYARD PAINTER Temperature - - Respiratory Rate - - Oxygen Saturation - - Inhaled Oxygen Concentration - - Weight - - Height - - Body Mass Index - - Plan of Treatment Health Maintenance Due Date Last Done Comments COLOGUARD (AGES 45-75) - COL ON CA SCREENING 1961 COLON MONITORING 1961 COLONOSCOPY - COLON CA SCREENING 1961 CT COLONOGRAPHY - COLON CA SCREENING 1961 Colorectal Cancer Screening 1961 FIT - COLON CA SCREENING 1961 FLEX SIG - COLON CA SCREENING 1961 MAMMOGRAM 1961 HIV SCREENING 1976 HEPATITIS C SCREENING 07/08/1979 DTAP/TDAP/TD VACCINES (1 - Tdap) 1980 PNEUMOCOCCAL VACCINE 50+ (1 of 1 - PCV) 2011 ZOSTER VACCINE (1 of 2) 2011 COVID-19 VACCINE (1 - 2023-2 5 season) 2024 DEPRESSION SCREENING 10/01/2024 INFLUENZA VACCINE (Season Ended) 2025 Respiratory Syncytial Virus (RSV) Vaccine Pt: or over 60 yrs (1 - 1-dose 75+ series) 2036 HEPATITIS B VACCINE Aged Out No longe r eligible based on patient's age to complete this topic HIB VACCINE Aged Out No longer eligi ble based on patient's age to complete this topic HPV VACCINE Aged Out No longer eligi ble based on patient's age to complete this topic MENINGOCOCCAL (Group B) VACC INE SHARED DECISION-MAKING Aged Out No longer eligibl e based on patient's age to complete this topic MENINGOCOCCAL GROUPS A/C/Y/W VACCINE Aged Out No longer eligible b ased on patient's age to complete this topic Care Teams Rec Therapist Relationship Specialty Start Date End Date Juan Pablo Culp MD [address] [place], [place] [id number] PCP - General 12/29/09
--- OUTSIDE RECORDS SUMMARY | 2025-02-05 09:16 | XMS_ITS | Clinical Summary ---
Author Organization [facility] Address [address] [place] [id number] Phone Care Team Providers Care Meat Wrapper Name Role Phone Unavailable Primary Care Provider Unavailabl e Medications atorvastatin (LIPITOR) 40 MG tablet 1 tab/cap qday 0 06/09/2018 Active metFORMIN XR (GLUCOPHATE-XR) 500 MG 24 hr tablet 2 tab/cap qday 0 06/09/2018 Active Active Problems Problem Noted Date Diagnosed Date Abnormal result of kidney function study 018 Type 2 diabetes mellitus without complication Other hyperlipidemia 06/09/2018 Overview (12/14/2018): Converted unresolved ICD9, potential mismatch. Family History Medical History Relation Comments Heart disease Father Cerebrovascular accident Mother Diabetes mellitus Mother Heart disease Mother Relation Status Comments Father Mother Social History Tobacco Use Types Packs/Day Years Used Date Smoking Tobacco: Every Day Alcohol Use Standard Drinks/Week Comments No 0 (1 standard drink = 0.6 oz pur e alcohol) Comments Unknown Sex and Gender Information Value Date Recorded Sex Assigned at Not on file Legal Sex Female 7:22 AM [facility] Gender Identity Not on file Sexual Orientation Not on file Last Filed Vital Signs Vital Sign Reading Time Taken Comments Blood Pressure 132/78 08/07/2018 12:01 AM MATERIAL MANAGER Pulse - - Temperature 36.7 C (98.1 F) 08/07/2018 12:01 AM MATERIAL MANAGER Respiratory Rate - - Oxygen Saturation - - Inhaled Oxygen Concentration - - Weight 83.9 kg (185 lb) 08/07/2018 12:01 AM MATERIAL MANAGER Height 160 cm (5' 3 ) 08/07/2018 12:01 AM MATERIAL MANAGER Body Mass Index 32.77 08/07/2018 12:01 AM MATERIAL MANAGER Plan of Treatment Health Maintenance Due Date Last Done Comments Diabetic Foot Exam 1971 Ophthalmology Exam 1971 Pneumococcal PPSV23 Highest Risk Adult (1 of 3 - PCV13 ) 1980 Influenza Vaccine (Season Ended) 2025
--- OUTSIDE RECORDS SUMMARY | 2025-02-05 09:16 | XMS_ITS | Clinical Summary ---
Author Organization [facility] Address [address] [place], [address] [address] Phone Care Team Providers Care Shearing Machine Tender Name Role Phone Beverly Samayoa MD Primary Care Provi nils Social History Tobacco Use Types Packs/Day Years Used Date Smoking Tobacco: Never Assessed Comments Unknown Sex and Gender Information Value Date Recorded Sex Assigned at Not on file Legal Sex Female 11:25 PM CDT Gender Identity Not on file Sexual Orientation Not on file Plan of Treatment Health Maintenance Due Date Last Done Comments Hepatitis C Virus (HCV) Screening 1961 TdaP Immunization 1961 Pap Smear 1982 Cervical Cancer Screening (CCS) 1991 HPV/Cotest 1991 Cologuard 2011 Immunochemical Fecal Occult Blood 2011 Mammogram 2011 Pneumococcal Immunization (5 0+ years) (1 of 1 - PCV) 2011 Zoster Immunization (1 of 2) 2011 Influenza Immunization (#1) 2024 SARS-COV-2 Immunization ( - 2023- season) 2024 Colonoscopy 09/09/2025 09/09/2020 Colorectal Cancer Screening 09/09/2025 Respiratory Syncytial Virus (RSV) Immunization (Adult) (1 - 1-dose 75+ series) 2036 09/09/2020 Hepatitis B Immunization Aged Out No longer eligible based on patient's age to complete this topic Meningococcal Immunization (ACWY) Aged Out No longer eligible based on patient's age to complete this topic Pneumococcal Immunization Combined Aged Out No longer eligible based on patient's age to complete this topic Rotavirus Immunization Aged Out No lo nger eligible based on patient's age to complete this topic Procedures Procedure Name Priority Date/Time Associated Diagnosis Comments COLONOSCOPY Routine 09/09/2020 from Last 3 Months or Most Recently Relevant to Health Maintenance Results * HM COLONOSCOPY (09/09/2020) Yobany Bunch DO PROCEDURE/MINOR SURGICAL ORDERA BLES Final Result from Last 3 Months or Most Recently Relevant to Health Maintenance Insurance [facility] Care Teams Shearing Machine Tender Relationship Specialty Start Date End Date Beverly Samayoa MD [address] [place] [address] PCP - General Family Medicine 07/22/20
[2025-02-05 09:31] LABS: Basophils Absolute Auto 0.1 K/mm3 (0.0-0.1); Basophils Percent Auto 0.5 % (0.2-1.2); Eosinophils Absolute Auto 0.2 K/mm3 (0-0.3); Eosinophils Percent Auto 1.8 % (0-4.4); Hematocrit 45.2 % (37.0-47.0); Immature Granulocyte Absolute 0.03 K/mm3 (0.00-0.031); Immature Granulocyte Percent A 0.3 % (0-0.5); Lymphocytes Percent Auto 30.7 % (18.3-44.2); Mean Corpuscular Hemoglobin 29.5 pg (26-34); Mean Corpuscular Volume 95.4 fl (80-100); Mean Platelet Volume 9.1 fl (7.4-10.4); Monocytes Absolute Auto 0.7 K/mm3 (0.1-0.6); Monocytes Percent Auto 7.5 % (2.6-8.5); Neutrophils Absolute Auto 5.4 K/mm3 (1.3-6.7); Neutrophils Percent Auto 59.2 % (45.5-73.1); Platelet Count Result 229 k/mm3 (150-375); Red Blood Count 4.74 M/mm3 (4.2-5.4); Red Cell Distribution Width 13.7 % (11.5-14.5); White Blood Count 9.1 K/mm3 (4.5-10.0)
[2025-02-05 09:42] LABS: Alanine Aminotransferase 25 U/L (6-35); Albumin Level 4.3 g/dL (3.5-5.1); Alkaline Phosphatase 81 U/L (38-126); Anion Gap 7 mmol/L (4-12); Aspartate Amino Transferase 30 U/L (14-36); Bilirubin,Total 0.3 mg/dL (0.2-1.3); Blood Urea Nitrogen 14 mg/dL (7-17); Calcium 9.5 mg/dL (8.4-10.2); Carbon Dioxide 30 mmol/L (22-30); Chloride 106 mmol/L (98-107); Cholesterol 128 mg/dL (0-200); Estimated Glomerular Filt Rate > 60; Glucose 103 mg/dL (65-110); HDL Direct 44 mg/dL; Potassium 4.2 mmol/L (3.4-5.0); Sodium 143 mmol/L (137-145); Triglycerides 102 mg/dL (<150)
[2025-02-05 09:55] LABS: LDL Cholesterol Direct 48 mg/dL
[2025-02-05 09:58] LABS: Free T4 Free Thyroxine 0.96 ng/dL (0.78-2.19)
[2025-02-05 10:00] LABS: Hemoglobin A1C 6.3 % (<5.7)
[2025-02-05 10:43] LABS: Creatinine Urine 64.1 mg/dL
[2025-02-05 10:58] LABS: MALB Creatinine Ratio < 9.4 mg/g (0-30); Microalbumin Urine Random < 6.0 mg/L (0-16.7)
== END 2025-02-05 08:57 | disposition home or self-care (01) ==
PROVIDERS: PCP Family Medicine; Visit Provider Student in an Organized Health Care Education/Training Program
DX: E11.65 Type 2 diabetes mellitus with hyperglycemia (principal); E11.69 Type 2 diabetes mellitus with other specified complication; E78.5 Hyperlipidemia, unspecified; I10 Essential (primary) hypertension; R53.83 Other fatigue
CPT/HCPCS: 36415; 80053; 80061; 82043; 83036; 84439; 84443; 85025